=== PATIENT | female | born 1985 | race Caucasian/White ===

== ENCOUNTER 2017-08-16 09:04 | Emergency (ER) | payer BC ==
[~2017-08-16] VITALS: Ht 172.7 cm; Wt 66.7 kg
[2017-08-16 09:04] VITALS: BP 111/75
[2017-08-16] MEDS ORDERED: ONDANSETRON 4 MG TAB.RAPDIS PO ONE (09:30)
[2017-08-16] MEDS ORDERED: CIPROFLOXACIN HCL 500 MG TABLET PO ONE (09:30)
[2017-08-16] MEDS ORDERED: PHENAZOPYRIDINE HCL 200 MG TABLET PO ONE (09:30)
[2017-08-16] MEDS ORDERED: CIPROFLOXACIN HCL 500 MG TABLET ONE (09:33)
[2017-08-16] MEDS ORDERED: ONDANSETRON 4 MG TAB.RAPDIS ONE (09:33)
[2017-08-16] MEDS ORDERED: PHENAZOPYRIDINE HCL 200 MG TABLET ONE (09:33)
[2017-08-16 09:36] LABS: APPEARANCE,URINE Cloudy (CLEAR); BILIRUBIN,URINE Negative (NEGATIVE); BLOOD, URINE Large Ery/uL (NEGATIVE); COLOR,URINE Yellow (YELLOW); KETONES,URINE Trace (NEGATIVE); LEUKOCYTE ESTERASE ,URINE Moderate (NEGATIVE); NITRITE, URINE Negative (NEGATIVE); PROTEIN,URINE >=300 mg/dl (NEGATIVE); UGLUCOSE Negative (NEGATIVE); UROBILINOGEN,URINE 0.2 EU/dL (0.2)
[2017-08-16 09:48] LABS: BACTERIA,URINE 2+ /HPF (None Seen); RBC,URINE 21-50 /HPF (0-2); SQUAMOUS EPITHELIAL CELL,UR Few /HPF (None Seen)
== END 2017-08-16 09:57 | disposition home or self-care (01) ==
LOC: ER 09:09
DX: N39.0 Urinary tract infection, site not specified (principal); K21.9 Gastro-esophageal reflux disease without esophagitis; Z88.0 Allergy status to penicillin
CPT/HCPCS: 81001; 84703; 87077; 87086; 87186; 99284; A4606; Q0162; Z7610; 81000-TC